=== PATIENT | female | born 1980 | race Hispanic/Latino ===

== ENCOUNTER 2018-01-28 03:52 | Emergency (ER) | payer BC ==
[2018-01-28 04:07] VITALS: BP 101/66; PULSE 74; RESP 17; TEMP 98; O2SAT 100
[2018-01-28] MEDS ORDERED: Simethicone 80 mg Chewtab PO STA (04:28)
[2018-01-28] MEDS ORDERED: Sodium Chloride 0.9% 1,000 ML IV STA (04:29)
--- NOTE | 2018-01-28 05:27 | ED PDOC ---
HPI: Abdomen Chief Complaint (Provider): abdominal pain History Per: Patient History/Exam Limitations: no limitations Onset/Duration Of Symptoms: Hrs Current Symptoms Are (Timing): Better Location Of Pain/Discomfort: Diffuse Quality Of Discomfort: "Pain" Associated Symptoms: Vomiting <Lucy Ball - Last Filed: 01/28/18 05:57> <Fransico Tracey - Last Filed: 01/28/18 06:44> Time Seen by Provider: 01/28/18 04:05 Chief Complaint (Nursing): Abdominal Pain Additional Complaint(s): 37 y/o female presents for evaluation of acute onset abdominal pain x 2 hours. Patient states pain woke her from her sleep, with associated bloating to abdomen. Patient states she felt as if she had to pass gas but could not, states she then vomited twice. Pain slightly improved since arrival to ED. Denies fever, cough, congestion, chest pain, shortness of breath, palpitations, changes in bowel movements, urinary symptoms. (Lucy Ball) Past Medical History Reviewed: Historical Data, Nursing Documentation, Vital Signs - Medical History PMH: No Chronic Diseases - Surgical History Surgical History: - Family History Family History: States: No Known Family Hx - Living Arrangements Living Arrangements: With Family <Lucy Ball - Last Filed: 01/28/18 05:57> <Fransico Tracey - Last Filed: 01/28/18 06:44> Vital Signs: Last Vital Signs Temp 98 F 01/28/18 04:06 Pulse 74 01/28/18 04:06 Resp 17 01/28/18 04:06 BP 101/66 01/28/18 04:06 Pulse Ox 100 01/28/18 05:58 - Allergies Allergies/Adverse Reactions: Allergies Allergy/AdvReac Type Severity Reaction Status Date / Time No Known Allergies Allergy Verified 01/28/18 04:07 Review of Systems ROS Statement: Except As Marked, All Systems Reviewed And Found Negative Gastrointestinal: Positive for: Nausea, Vomiting, Abdominal Pain <Lucy Ball - Last Filed: 01/28/18 05:57> Physical Exam - Reviewed Nursing Documentation Reviewed: Yes Vital Signs Reviewed: Yes - Physical Exam Appears: Positive for: Well, Non-toxic, No Acute Distress Head Exam: Positive for: ATRAUMATIC, NORMAL INSPECTION, NORMOCEPHALIC Skin: Positive for: Normal Color Eye Exam: Positive for: Normal appearance ENT: Positive for: Normal ENT Inspection Cardiovascular/Chest: Positive for: Regular Rate, Rhythm Respiratory: Positive for: Normal Breath Sounds Gastrointestinal/Abdominal: Positive for: Bowel Sounds, Soft, Tenderness (rlq, llq), Distended Back: Positive for: Normal Inspection Extremity: Positive for: Normal ROM Neurologic/Psych: Positive for: Alert, Oriented (x3) <Lucy Ball - Last Filed: 01/28/18 05:57> - ECG O2 Sat by Pulse Oximetry: 100 <Lucy Ball - Last Filed: 01/28/18 05:57> - Laboratory Results Result Diagrams: 01/28/18 05:47 01/28/18 05:47 <Fransico Tracey - Last Filed: 01/28/18 06:44> - Progress ED Course And Treament: Patient states in ED she was able to pass gas and feels bloating has improved Tenderness still present in lower quadrants upon palpation Will check labs and give trial Mylicon (Lucy Ball) Medical Decision Making <Lucy Ball - Last Filed: 01/28/18 05:57> <Fransico Tracey - Last Filed: 01/28/18 06:44> Medical Decision Making: Time: 6:41 Labs were reviewed with no clinically significant abnormalities. Patient states that pain has resolved and that she feels well. . Upon provider evaluation patient is medically stable, and requires no further treatment in the ED at this time. Patient will be discharged home. Counseling was provided and all questions were answered regarding diagnosis and need for follow up with PMD. There is agreement to discharge plan. Return if symptoms persist or worsen. Scribe Attestation: Documented by Alia Gonzales, acting as a scribe for Fransico Tracey MD. Provider Scribe Attestation: All medical record entries made by the Scribe were at my direction and personally dictated by me. I have reviewed the chart and agree that the record accurately reflects my personal performance of the history, physical exam, medical decision making, and the department course for this patient. I have also personally directed, reviewed, and agree with the discharge instructions and disposition. (Fransico Tracey) Disposition - Disposition Disposition Time: 06:00 Patient Signed Over To: Fransico Tracey Handoff Comments: pending labs, re-eval <Lucy Ball - Last Filed: 01/28/18 05:57> - Patient ED Disposition Is Patient to be Admitted: No - Disposition Disposition: Routine/Home Disposition Time: 06:44 <Fransico Tracey - Last Filed: 01/28/18 06:44> - Clinical Impression Clinical Impression: Abdominal pain, Abdominal bloating - Disposition Condition: IMPROVED Instructions: Gas and Bloating Forms: [facility] ([place])
[2018-01-28 06:01] LABS: SQUAMOUS EPITHIAL 3 /hpf (0-5); URINE BACTERIA RARE (<OCC); URINE BILIRUBIN NEGATIVE (NEGATIVE); URINE BLOOD NEGATIVE (NEGATIVE); URINE CLARITY SLIGHTY-CLOUDY (Clear); URINE COLOR YELLOW (YELLOW); URINE GLUCOSE (UA) NEG (Normal); URINE LEUKOCYTE ESTERASE NEG Leu/uL (Negative); URINE PROTEIN NEGATIVE (NEGATIVE); URINE UROBILINOGEN 0.2-1.0 mg/dL (0.2-1.0)
[2018-01-28 06:09] LABS: CALCIUM 8.6 mg/dL (8.4-10.2); GFR NON-AFRICAN AMERICAN > 60; LIPASE 58 U/L (23-300)
[2018-01-28 06:17] LABS: BASO # 0.1 K/uL (0.0-0.2); BASO % 0.7 % (0.0-2.0); EOS # 0.1 K/uL (0.0-0.7); EOS % 1.2 % (0.0-4.0); HEMOGLOBIN 13.2 g/dL (12.0-16.0); LYMPH # 1.4 K/uL (1.0-4.3); LYMPH % 17.9 % (20.0-40.0); MEAN CELL VOLUME 93.2 fl (81.0-99.0); MEAN CORPUSCULAR HEMOGLOBIN 31.1 pg (27.0-31.0); MEAN CORPUSCULAR HGB CONC 33.4 g/dL (33.0-37.0); MEAN PLATELET VOLUME 9.6 fl (7.2-11.7); MONO # 0.6 K/uL (0.0-0.8); MONO % 7.2 % (0.0-10.0); NEUT # 5.9 K/uL (1.8-7.0); RBC 4.24 Mil/uL (3.80-5.20); WHITE BLOOD COUNT 8.1 K/uL (4.8-10.8)
[2018-01-28 06:26] LABS: BLOOD UREA NITROGEN 12 mg/dl (7-17)
[2018-01-28 06:27] LABS: ALB/GLOB RATIO 1.3 (1.0-2.1); ALBUMIN 4.2 g/dL (3.5-5.0); ALT/SGPT 22 U/L (9-52); AST/SGOT 32 U/L (14-36)
== END 2018-01-28 06:30 | disposition home or self-care (01) ==
LOC: H.ER 03:52
DX: R10.9 Unspecified abdominal pain (principal)
CPT/HCPCS: 80053; 81003; 81025; 83690; 85025; 99283; J7030